=== PATIENT | female | born 1980 | race Two or more races ===

== ENCOUNTER 2022-02-19 14:32 | Emergency (ER) | payer MEDICAID ==
[2022-02-19 14:49] VITALS: BP 130/70
[2022-02-19] MEDS ORDERED: CLINDAMYCIN 150 MG CAPSULE PO STA (17:00)
[2022-02-19] MEDS ORDERED: oxyCODONE 5 MG TABLET PO STA (17:00)
--- NOTE | 2022-02-19 17:02 | ED Physician Documentation ---
History of Present Illness - Stated complaint Stated Complaint: PELVIC PAIN - Chief complaint Chief Complaint: Wound - History obtained from History obtained from: Patient - History of Present Illness Pain level max: 7 Pain level now: 6 - Additonal information Additional information: 41-year-old female presents to the emergency department with swelling and pain to the right labia for the past 2 to 3 days. Has never had this happen previously. Worse with palpation and movement. Nothing makes it better. 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 - Present Medications Home Medications: Ambulatory Orders Medication Instructions Recorded Confirmed Levonorgestrel [Mirena] 1 each IY 08/16/13 08/16/13 Oxycodone HCl/Acetaminophen 1 - 2 each PO Q6H PRN #14 tablet 02/19/22 [Percocet 5-325 mg Tablet] clindamycin HCL [Cleocin HCl] 300 mg PO Q6H #40 cap 02/19/22 - Allergies Allergies/Adverse Reactions: Allergies Allergy/AdvReac Type Severity Reaction Status Date / Time No Known Drug Allergies Allergy Verified 02/19/22 14:44 - Living Situation Living Situation: reports: With family Living Arrangement: reports: At home - Social History Does the pt smoke?: Yes Smoking Status: Current every day smoker Does the pt drink ETOH?: No Does the pt have substance abuse?: No - Immunizations Immunizations are current?: No - POLST Patient has POLST: No PD ED PE NORMAL - Vitals Vital signs reviewed: Yes - General General: Alert and oriented X 3, No acute distress - HEENT HEENT: Moist mucous membranes - Abdomen Abdomen: Soft, Non tender, Non distended - Female 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 Mild induration and swelling. Approximately 1 cm in size) - Derm Derm: Warm and dry - Neuro Neuro: Alert and oriented X 3 - Psych Psych: Normal mood, Normal affect Results - Vitals Vitals: Vital Signs - 24 hr 02/19/22 14:44 Temperature 36.5 C Heart Rate 98 Respiratory 18 Rate Blood Pressure 130/70 O2 Saturation 99 Oxygen O2 Source Room air PD MEDICAL DECISION MAKING - ED course Complexity details: considered differential, d/w patient ED course: Patient with a small Bartholin's gland cyst versus abscess. Discussed incision and drainage, but given its size, we will trial her on antibiotics and sitz bath's first. Patient counseled that this may require drainage if it fails to resolve. I am prescribing a short course of short-acting opioid pain medication for this patient. 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 I have discussed that the opioids are for short term therapy only, and will not be refilled from the ED. patient counseled regarding signs and symptoms for which I believe and urgent re-evaluation would be necessary. Patient with good understanding of and agreement to plan and is comfortable going home at this time This document was made in part using voice recognition software. While efforts are made to proofread this document, sound alike and grammatical errors may occur. Departure - Departure Disposition: 01 Home, Self Care Clinical Impression: Bartholin gland cyst Condition: Good Instructions: ED Bartholins Cyst IandD, ED Bartholins Cyst No Infec, Sitz Bath Follow-Up: your,doctor in 2-3 days [Other] Prescriptions: clindamycin HCL [Cleocin HCl] 300 mg PO Q6H #40 cap Oxycodone HCl/Acetaminophen [Percocet 5-325 mg Tablet] 1 - 2 each PO Q6H PRN #14 tablet PRN Reason: pain Comments: Take all antibiotics until gone. Return if you worsen. Your prescriptions were sent to [facility] in [place]. Use the sitz bath's 2-3 times a day to help encourage drainage. Please return in 2 to 3 days for a wound check. Especially if things are getting worse. This may need to be drained if it does not resolve with the antibiotics and warm soaks. I am prescribing a short course of narcotic pain medication for you. These are potentially dangerous and addictive medications that should be used carefully. These medications may constipate you. Take an [id number] stool softener (docusate) twice daily with plenty of water while taking these medications. If you go 24 hours without a bowel movement, take [id number] miralax, per package instructions. Do not drink or drive while taking these medications. If you received narcotic or sedating medications while in the emergency department, do not drive for 24 hours. Store this medication in a safe, secure place and out of reach of children. It is a violation of federal law to give or sell this medication to another person or to use in a manner other than prescribed. The ED will not refill narcotic prescriptions, including prescriptions lost or stolen. To dispose of unwanted medications: 1. [facility] at [address] in [place] has a medication drop box. They accept prescription medications (in pill form) Saturday through Saturday 9:00 a.m. to 5:00 p.m. 2. The [facility] [employer] accepts prescription medications (in pill form only) for disposal year round. Call for more information. 3. Contact the [facility] for the next [facility] sponsored prescription drug collection event. , [phone], or [phone];
== END 2022-02-19 17:15 | disposition home or self-care (01) ==
LOC: ED 14:32
DX: N75.0 Cyst of Bartholin's gland (principal)
CPT/HCPCS: 99282; A9270